=== PATIENT | male | born 1955 | race Caucasian/White ===

== ENCOUNTER → 2017-06-05 | Day surgery (SDC) | payer OTHER ==
--- NOTE | 2017-06-05 15:57 | RADIOLOGY REPORT (SQ) ---
EXAM DESCRIPTION: FLUORO/NEEDLE PLACEMENT; ARTHRO SHOULDER INJECTION COMPLETED DATE/TIME: 06/05/2017 2:53 pm REASON FOR STUDY: RIGHT SHOULDER PAIN (M25.511), ROTATOR CUFF TEAR (M75.100) M25.511 PAIN IN RIGHT SHOULDER M75.100 UNSP ROTATR-CUFF TEAR/RUPTR OF UNSP SHOULDER, NOT TR COMPARISON: CT angio chest 04/12/2015 MRI cervical spine 04/24/2015 FLUOROSCOPY TIME: 6 seconds 1 digital radiograph image saved to PACS. LIMITATIONS: None. PROCEDURE: Procedure, risks, benefits and alternatives explained to patient who then gave written co nsent. The posterior right shoulder was marked and a time out was called for correct procedure verifi cation. Posterior entry site marked using fluoroscopic guidance. Shoulder prepped and draped using sterile technique. Local anesthesia achieved using 7 mL of 1% lidocaine injection. 22 gauge spinal needle introduced into the joint space under direct fluoroscopic visualization. Non-ionic contrast in stilled to confirm intra-articular position. Dilute gadolinium solution then injected. Needle remove d and entry site covered with sterile bandage. No immediate complications noted. TECHNIQUE: Digital images acquired during fluoroscopy and stored on PACS. Patient immediately take n to the MR suite for additional imaging. INJECTION LOCATION: Posterior right shoulder, glenohumeral joint. CONTRAST TYPE AND AMOUNT: 1 mL of Isovue 300 in injected to confirm intra-articular needle placement followed by 10 mL of dilute gadolinium for MR arthrogram IMPRESSION: SUCCESSFUL NEEDLE PLACEMENT AND INJECTION FOR RIGHT SHOULDER MR ARTHROGRAM USING POSTERI OR APPROACH. COMMENT: Quality ID [id number]: Final reports for procedures using fluoroscopy that document radiation exp osure indices, or exposure time and number of fluorographic images (if radiation exposure indices are not available) TECHNICAL DOCUMENTATION: JOB ID: [id number] [employer]- All Rights Reserved
--- NOTE | 2017-06-05 16:51 | RADIOLOGY REPORT (SQ) ---
EXAM DESCRIPTION: MRI RT UPPER JOINT WITH COMPLETED DATE/TIME: 06/05/2017 3:21 pm REASON FOR STUDY: RIGHT SHOULDER PAIN (M25.511), ROTATOR CUFF TEAR (M75.100) M25.511 PAIN IN RIGHT SHOULDER M75.100 UNSP ROTATR-CUFF TEAR/RUPTR OF UNSP SHOULDER, NOT TR COMPARISON: Arthrogram same date TECHNIQUE: Post arthrogram Right shoulder images acquired and stored on PACS. Multiplanar imaging to include fat sensitive sequences such as T1, water sensitive sequences such as FST2/STIR, cartilage s ensitive sequences such as FSPD/gradient-echo sequences. LIMITATIONS: None. FINDINGS: BONE MARROW AND CORTEX: No worrisome bone lesions or marrow replacement. No occult fractur es. JOINT OR BURSAL EFFUSION: Joint is well distended for arthrogram. No loose bodies. No leakage into the subacromial/ subdeltoid bursa GLENO-HUMERAL ARTICULATION: Normal articulation. No subluxation. No cystic change. No osteophytes or cartilage loss. ACROMION AND AC JOINT: Type 1 acromion with mild acromioclavicular joint synovial thickening and bon y spurring. This is best shown on sagittal image 11. No significant narrowing of the subacromial re cess ROTATOR CUFF AND INTERVAL: There is a high-grade partial thickness tear along the anterior edge of th e supraspinatus tendon, best demonstrated on coronal image 11 and sagittal image 4. Very mild unders urface tendinopathy of the infraspinatus tendon and distal subscapularis tendon. No definite rotator interval tear. Injected arthrogram contrast fills the subcoracoid recess, subcoracoid recess has mu ltiple septations No rotator interval tear. No rotator interval thickening to suggest adhesive capsulitis. LABRUM AND BICEPS LABRAL COMPLEX: Intact. No labral tear. Intra-articular long-head biceps tendinop athy with mild increased signal avid enters the joint space. Distal biceps in normal location in bic ipital groove. REMAINDER OF LABRUM AND IGHL : No gross tear or paralabral cyst formation. Labral evaluation is less than optimal without joint distention. No thickening of IGHL to suggest adhesive capsulitis. PERIARTICULAR AND ADJACENT SOFT TISSUES: No masses or abnormal nodes. OTHER: No other significant finding. IMPRESSION: Acromioclavicular joint hypertrophy Tiny high-grade partial thickness tear anterior edge supraspinatus tendon TECHNICAL DOCUMENTATION: JOB ID: [id number] [employer]- All Rights Reserved
== END ==
LOC: RAD 13:43
PROVIDERS: ATTEND Nuclear Medicine
PROC: BP08ZZZ Plain Radiography of Right Shoulder (ICD-10-PCS; principal; 2017-06-05)
DX: M75.111 Incomplete rotator cuff tear or rupture of right shoulder, not specified as traumatic (principal); M25.511 Pain in right shoulder
CPT/HCPCS: 73222; 77002; 23350; A9576

== ENCOUNTER → 2018-07-16 | Outpatient (CLI) | payer OTHER ==
--- NOTE | 2018-07-16 15:53 | RADIOLOGY REPORT (SQ) ---
EXAM DESCRIPTION: MRI LUMBAR SPINE WITHOUT COMPLETED DATE/TIME: 07/16/2018 3:29 pm REASON FOR STUDY: LUMBAR RADICULOPATHY (M54.16) M54.16 RADICULOPATHY, LUMBAR REGION COMPARISON: None. TECHNIQUE: Sagittal and Axial imaging includes T1, T2, STIR and gradient echo sequences. Coronal T2/ HASTE imaging. LIMITATIONS: None. FINDINGS: VISUALIZED UPPER ABDOMEN: Limited evaluation. No acute or suspicious findings suggested. SEGMENTATION: No transitional anatomy. The lowest well-developed disc space is labeled L5-S1. ALIGNMENT: Anatomic. VERTEBRAE: Intact. BONE MARROW: Fatty vertebral body endplate changes at L4-5 and L5-S1 DISC SIGNAL: Diffuse decreased T2 weighted intervertebral disc signal. Disc space loss of height at L4-5 and L5-S1 POSTERIOR ELEMENTS: Generally intact. No pars defect evident. HARDWARE: None in the spine. CORD AND CONUS: Normal in size and signal intensity. Conus at the L1 level. SOFT TISSUES: No aortic aneurysm seen. No bulky retroperitoneal adenopathy or mass. No paraspinal mas s or fluid. T11-12: Unremarkable T12-L1: Unremarkable L1-L2: Mild to moderate bilateral facet hypertrophy. No central or foraminal encroachment. L2-L3: Mild diffuse posterior disc bulge, mild bilateral facet and ligament hypertrophy. Borderline central canal narrowing. Mild right and left foraminal narrowing without exiting L2 nerve root impin gement L3-L4: Broad diffuse posterior disc bulge and bony spurring, moderate bilateral facet and ligament hy pertrophy. Borderline central canal narrowing. Moderate right, mild left foraminal narrowing is pre sent without exiting L2 nerve root impingement L4-L5: Minimal posterior disc bulge, mild bilateral facet and ligament hypertrophy. No central steno sis. Moderate right, mild left foraminal narrowing without exiting L4 nerve root impingement L5-S1: Mild diffuse posterior disc bulge, moderate bilateral facet and ligament hypertrophy. No cent ral stenosis. Mild bilateral foraminal narrowing without exiting L5 nerve root impingement SACRUM: Visualized upper sacrum intact. OTHER: No other significant findings. IMPRESSION: Mild diffuse degenerative changes as above TECHNICAL DOCUMENTATION: JOB ID: [id number] 1976[employer]- All Rights Reserved Reading location - IP/workstation name: [email or web address]
== END ==
LOC: RAD 13:55
PROVIDERS: ATTEND Family Medicine
DX: M54.16 Radiculopathy, lumbar region (principal)
CPT/HCPCS: 72148

== ENCOUNTER → 2018-07-26 | Outpatient (CLI) | payer OTHER ==
--- NOTE | 2018-07-26 15:46 | RADIOLOGY REPORT (SQ) ---
EXAM DESCRIPTION: MRI RT LOWER JOINT WITHOUT COMPLETED DATE/TIME: 07/26/2018 3:06 pm REASON FOR STUDY: M25.551 PAIN IN RIGHT HIP M25.551 PAIN IN RIGHT HIP COMPARISON: None. TECHNIQUE: Righthip images acquired and stored on PACS. Multiplanar images to include fat sensitive sequences as T1, fluid sensitive sequences as T2/STIR and gradient echo sequences. Large FOV fat and fluid sensitive sequences include pelvis and opposite hip. LIMITATIONS: None. FINDINGS: BONE CORTEX AND MARROW: No generalized marrow replacement. No occult fracture. No worriso me bone lesions. TARGETED HIP: FEMORAL HEAD: Normal shape of the femoral head and neck. Mild osteoarthritic changes. ACETABULUM: No acetabular dysplasia. No subchondral cysts. LABRUM: Intact. Sensitivity is lower without joint distention. No paralabral cysts. TROCHANTER: No trochanteric bursal effusion. No edema/fluid at the insertions of the gluteus medius and gluteus minimus. OPPOSITE HIP: Limited evaluation. No worrisome bone lesions. No significant effusion. PELVIS, LOWER LUMBAR SPINE, SACROILIAC JOINTS: PELVIS : No insufficiency/stress fractures. No significant degenerative changes. Sacroiliac joints normal. L SPINE: See separate report. MUSCLES AND SOFT TISSUES: Adductors and piriformis normal. Abductors and greater trochanteric bursa n ormal without edema or fluid. Iliopsoas bursa without fluid. Hamstring attachments without edema or t ear. PELVIC SOFT TISSUES: No masses or adenopathy. SCIATIC NERVE: Identified, without masses or abnormal signal. OTHER: No other significant finding. IMPRESSION: Degenerative changes. No acute findings. TECHNICAL DOCUMENTATION: JOB ID: [id number] [employer]- All Rights Reserved Reading location - IP/workstation name: [email or web address]
== END ==
LOC: RAD 15:10
PROVIDERS: ATTEND Internal Medicine
DX: M25.551 Pain in right hip (principal)

== ENCOUNTER → 2019-04-11 | Outpatient (CLI) | payer OTHER ==
--- NOTE | 2019-04-11 17:37 | RADIOLOGY REPORT (SQ) ---
EXAM DESCRIPTION: CHEST 2 VIEWS COMPLETED DATE/TIME: 04/11/2019 5:16 pm REASON FOR STUDY: R05 COUGH COMPARISON: 04/12/2015 TECHNIQUE: Frontal and lateral radiographic views of the chest acquired. NUMBER OF VIEWS: Two view. LIMITATIONS: None. FINDINGS: LUNGS AND PLEURA: No pneumothorax. Minimal left lateral basilar subsegmental atelectasis - interval subpleural scarring. No consolidation or pleural effusion. MEDIASTINUM AND HILAR STRUCTURES: Stable. HEART AND VASCULAR STRUCTURES: Stable. BONES: No acute findings. HARDWARE: None in the chest. OTHER: No other significant finding. IMPRESSION: Minimal left lateral basilar subsegmental atelectasis - interval subpleural scarring. N o consolidation or pleural effusion. TECHNICAL DOCUMENTATION: JOB ID: [id number] [place]-72 2010 [employer]- All Rights Reserved Reading location - IP/workstation name: [email or web address][x+1]
== END ==
LOC: RAD 17:07
PROVIDERS: ATTEND Internal Medicine
DX: R05 Cough (principal)
CPT/HCPCS: 71046

== ENCOUNTER 2020-10-05 10:38 | Emergency (ER) | payer OTHER ==
--- NOTE | 2020-10-05 11:29 | ER Document Report ---
ED Medical Screen (RME) - General Chief Complaint: Chest Pain Stated Complaint: CHEST PAIN Time Seen by Provider: 10/05/20 11:21 Primary Care Provider: LEE DIEZ MD [Primary Care Provider] - Follow up as needed TRAVEL OUTSIDE OF THE [place] IN LAST 30 DAYS: No - HPI Notes: 10/05/20 11:27 65-year-old male presents to the emergency room today with bilateral jaw pain that radiated to his chest around 0920 this morning, reports substernal chest pain, denies any tightness or pressure. Denies any shortness of breath, nausea vomiting abdominal pain back pain neck pain. Patient reports he did have a cath done 20 years ago that was exploratory, did not require any stenting, was placed on GERD medication. Reports his father's first PR was at 56, non-smoker. Patient did not take any baby aspirin. non smoker. I have greeted and performed a rapid initial assessment of this patient. A comprehensive ED assessment and evaluation of the patient, analysis of test results and completion of the medical decision making process will be conducted by additional ED providers. PHYSICAL EXAMINATION: GENERAL: Well-appearing, well-nourished and in no acute distress. NECK: Normal range of motion CV: s1, s2 regular LUNGS: No respiratory distress The patient was evaluated during a global COVID-19 pandemic and that diagnosis was suspected/considered upon their initial presentation. Their evaluation, treatment and testing was consistent with current guidelines for patients who present with complaints or symptoms and may be related to COVID-19. - Related Data Allergies/Adverse Reactions: No Known Allergies Allergy (Verified 04/12/15 16:21) Past Medical History - Past Medical History Cardiac Medical History: Denies: Hx Atrial Fibrillation, Hx Congestive Heart Failure, Hx Coronary Artery Disease, Hx Hypercholesterolemia, Hx Hypertension, Hx Pulmonary Embolism Pulmonary Medical History: Reports: Hx Bronchitis Denies: Hx Tuberculosis Neurological Medical History: Reports: Hx Migraine. Denies: Hx Seizures Renal/ Medical History: Reports: Hx Benign Prostatic Hyperplasia GI Medical History: Reports: Hx Gastroesophageal Reflux Disease Past Surgical History: Denies: Hx Appendectomy, Hx Bowel Surgery, Hx Cholecystectomy, Hx Coronary Artery Bypass Graft, Hx Gastric Bypass Surgery, Hx Herniorrhaphy, Hx Pacemaker, Hx Tonsillectomy - Immunizations Hx Diphtheria, Pertussis, Tetanus Vaccination: No Physical Exam - Vital signs Vitals: Temp Pulse Resp BP Pulse Ox 98.2 F 75 16 138/87 H 97 10/05/20 10:57 10/05/20 10:57 10/05/20 10:57 10/05/20 10:57 10/05/20 10:57 Course - Vital Signs Vital signs: Temp Pulse Resp BP Pulse Ox 98.2 F 75 16 138/87 H 97 10/05/20 10:57 10/05/20 10:57 10/05/20 10:57 10/05/20 10:57 10/05/20 10:57 Doctor's Discharge - Discharge Referrals: LEE DIEZ MD [Primary Care Provider] - Follow up as needed
[2020-10-05 12:03] LABS: ABSOLUTE LYMPHOCYTES (AUTO) 1.4 10^3/uL (0.5-4.7); ABSOLUTE MONOCYTES (AUTO) 0.5 10^3/uL (0.1-1.4); ABSOLUTE NEUT (AUTO) 2.7 10^3/uL (1.7-8.2); BASOPHILS % (AUTO) 0.5 % (0-2); HEMATOCRIT 42.1 % (37.9-51.0); HEMOGLOBIN 14.8 g/dL (13.5-17.0); LYMPHOCYTES % (AUTO) 30.3 % (13-45); MEAN CORPUSCULAR HEMOGLOBIN 32.3 pg (27.0-33.4); MEAN CORPUSCULAR HGB CONC 35.2 g/dL (32.0-36.0); MEAN CORPUSCULAR VOLUME 92 fl (80-97); MONOCYTES % (AUTO) 10.1 % (3-13); PLATELET COUNT 207 10^3/uL (150-450); RED CELL DISTRIBUTION WIDTH 12.4 % (11.5-14.0); SEGMENTED NEUTROPHILS % (AUTO) 58.1 % (42-78); TOTAL CELLS COUNTED % (AUTO) 100 %; WHITE BLOOD COUNT 4.6 10^3/uL (4.0-10.5)
[2020-10-05 12:28] LABS: ALBUMIN 4.4 g/dL (3.5-5.0); ALKALINE PHOSPHATASE 78 U/L (38-126); ANION GAP 7 (5-19); ASPARTATE AMINO TRANSFERASE 38 U/L (17-59); BILIRUBIN,DIRECT 0.1 mg/dL (0.0-0.4); BILIRUBIN,TOTAL 0.6 mg/dL (0.2-1.3); BLOOD UREA NITROGEN 18 mg/dL (7-20); CARBON DIOXIDE 27 mmol/L (22-30); CHLORIDE 104 mmol/L (98-107); CREATINE KINASE 76 U/L (55-170); GLUCOSE 105 mg/dL (75-110); POTASSIUM 4.5 mmol/L (3.6-5.0); TOTAL PROTEIN 7.5 g/dL (6.3-8.2)
[2020-10-05 12:40] LABS: CREATINE KINASE MB 0.91 ng/mL (<4.55)
[2020-10-05 12:41] LABS: TROPONIN I < 0.012 ng/mL
--- NOTE | 2020-10-05 12:43 | RADIOLOGY REPORT (SQ) ---
EXAM DESCRIPTION: CHEST SINGLE VIEW IMAGES COMPLETED DATE/TIME: 10/05/2020 12:36 pm REASON FOR STUDY: chest pain COMPARISON: 04/11/2019. EXAM PARAMETERS: NUMBER OF VIEWS: One view. TECHNIQUE: Single frontal radiographic view of the chest acquired. RADIATION DOSE: NA LIMITATIONS: None. FINDINGS: LUNGS AND PLEURA: No opacities, masses or pneumothorax. No pleural effusion. MEDIASTINUM AND HILAR STRUCTURES: No masses. Contour normal. HEART AND VASCULAR STRUCTURES: Heart normal in size. Normal vasculature. BONES: No acute findings. HARDWARE: None in the chest. OTHER: No other significant finding. IMPRESSION: NO ACUTE RADIOGRAPHIC FINDING IN THE CHEST. TECHNICAL DOCUMENTATION: JOB ID: [id number] 2010 [employer]- All Rights Reserved Reading location - IP/workstation name: [email or web address]
--- NOTE | 2020-10-05 13:08 | ER Document Report ---
ED Cardiac - General Chief Complaint: Chest Pain Stated Complaint: CHEST PAIN Time Seen by Provider: 10/05/20 11:21 Primary Care Provider: LEE DIEZ MD [Primary Care Provider] - 10/07/20 Notes: Patient is a 65-year-old male who comes emergency department for chief complaint of an episode earlier today where he had pain just below the sternum. He states this was a vague discomfort at first that became uncomortable and then almost resolved on arrival to the Emergency Department. He states just before this he was hurting in his jaws in the TMJ areas on both sides although he isn't certain this was related. He denies nausea, vomiting, shortness of breath, dizziness, fever, cough. He states he actually has been having similar symptoms recently along with frequent heartburn, used to be on a PPI from his primary provider but this was stopped due to headaches while taking this. He states he takes frequent TUMS instead. He has not had an endoscopy. He did have a cardiac stress test and then heart catheterization in 2003 and was subsequently placed on the PPI. He is treated for BPH, has a history of ventral hernia repair, denies medical history otherwise. His father had an [place]. He denies smoking, alcohol, recreational drugs. TRAVEL OUTSIDE OF THE [place] IN LAST 30 DAYS: No - Related Data Allergies/Adverse Reactions: No Known Allergies Allergy (Verified 04/12/15 16:21) Home Medications: med for BPH Past Medical History - General Information source: Patient - Social History Smoking Status: Never Smoker Chew tobacco use (# tins/day): No Frequency of alcohol use: Occasional Drug Abuse: None Lives with: Family Family History: CAD - Past Medical History Cardiac Medical History: Denies: Hx Atrial Fibrillation, Hx Congestive Heart Failure, Hx Coronary Artery Disease, Hx Hypercholesterolemia, Hx Hypertension, Hx Pulmonary Embolism Pulmonary Medical History: Reports: Hx Bronchitis Denies: Hx Tuberculosis Neurological Medical History: Reports: Hx Migraine. Denies: Hx Seizures Renal/ Medical History: Reports: Hx Benign Prostatic Hyperplasia GI Medical History: Reports: Hx Gastroesophageal Reflux Disease Past Surgical History: Denies: Hx Appendectomy, Hx Bowel Surgery, Hx Cholecystectomy, Hx Coronary Artery Bypass Graft, Hx Gastric Bypass Surgery, Hx Herniorrhaphy, Hx Pacemaker, Hx Tonsillectomy - Immunizations Hx Diphtheria, Pertussis, Tetanus Vaccination: Yes Review of Systems - Review of Systems Constitutional: No symptoms reported EENT: No symptoms reported Cardiovascular: See HPI Respiratory: No symptoms reported Gastrointestinal: See HPI Genitourinary: No symptoms reported Male Genitourinary: No symptoms reported Musculoskeletal: No symptoms reported Skin: No symptoms reported Hematologic/Lymphatic: No symptoms reported Neurological/Psychological: No symptoms reported Physical Exam - Vital signs Vitals: Temp Pulse Resp BP Pulse Ox 98.2 F 75 16 138/87 H 97 10/05/20 10:57 10/05/20 10:57 10/05/20 10:57 10/05/20 10:57 10/05/20 10:57 - Notes Notes: GENERAL: Alert, interacts well. No acute distress. Very youthful in appearance HEAD: Normocephalic, atraumatic. EYES: Pupils equal, round, and reactive to light. Extraocular movements intact. ENT: Oral mucosa moist, tongue midline. Oropharynx unremarkable. Airway patent. NECK: Full range of motion. Supple. Trachea midline. No lymphadenopathy. LUNGS: Clear to auscultation bilaterally, no wheezes, rales, or rhonchi. No respiratory distress. Non-tender chest wall. HEART: Regular rate and rhythm. No murmur ABDOMEN: Soft, non-tender. Non-distended. Bowel sounds present in all 4 quadrants. GENITOURINARY: Deferred EXTREMITIES: Moves all 4 extremities spontaneously. No edema, normal radial and dorsalis pedis pulses bilaterally. No cyanosis. BACK: no cervical, thoracic, lumbar midline tenderness. No saddle anesthesia, normal distal neurovascular exam. Moves all extremities in full range of motion. NEUROLOGICAL: Alert and oriented x3. Normal speech. Cranial nerves II through XII grossly intact. Strength 5/5 in all extremities. PSYCH: Normal affect, normal mood. SKIN: Warm, dry, normal turgor. No rashes or lesions noted. Course - Re-evaluation Re-evalutation: Patient with symptoms he is very familiar with, he still had mild discomfort on my evaluation, he was given Carafate and Pepcid and after this his symptoms completely resolved. 2 negative troponins. EKG nonischemic. Chest x-ray unremarkable. CBC and chemistry unremarkable. Vital signs unremarkable. Based on patient's age and risk factors his heart score is 3. I discussed with patient at length. Patient is familiar with this, already had full work-up for this in the past, is familiar with treatments, although I did discuss options. Decision was made to discharge home on Carafate and Pepcid, I do have a very low suspicion of ACS based on his resolution with Carafate and Pepcid, negative work-up, low heart score, and history of the same. Patient has excellent primary care follow-up and states he will follow up very closely, discussed return precautions in detail, patient states appreciation and agreement. Stable and well-appearing at time of discharge. - Vital Signs Vital signs: Temp Pulse Resp BP Pulse Ox 98.2 F 75 20 118/89 H 98 10/05/20 10:57 10/05/20 10:57 10/05/20 16:01 10/05/20 16:01 10/05/20 16:01 - Laboratory Results Result Diagrams: 10/05/20 11:50 10/05/20 11:50 Critical Laboratory Results Reviewed: No Critical Results - Radiology Results Critical Radiology Results Reviewed: No Critical Results - EKG Interpretation by Me Additional EKG results interpreted by me: EKG shows sinus rhythm at a rate of 70, QTc 406, borderline axis, flattened T waves inferiorly, no T wave inversions or ST segment changes in consecutive leads. Discharge - Discharge Clinical Impression: Chest pain Qualifiers: Chest pain type: unspecified Qualified Code(s): R07.9 - Chest pain, unspecified Condition: Stable Disposition: HOME, SELF-CARE Additional Instructions: Based on your symptoms, history, and negative work-up I most strongly suspect esophageal spasm as a cause of her symptoms. You have been prescribed Carafate and famotidine to take, I recommend you take these over the next several days and these can also be taken for symptomatic relief. Follow close with Dr. Jessi dupree for additional referral and management. Temporarily avoid caffeine, alcohol, NSAIDs, spicy food as these can seriously worsen your situation. Return for any concerning symptoms including severe pain, vomiting, vomiting blood, black stools, passing out, or any other concerning symptoms. Prescriptions: Sucralfate [Carafate 1 gm Tablet] 1 gm PO QID #20 tablet Famotidine [Pepcid 20 mg Tablet] 20 mg PO BID #20 tablet Referrals: LEE DIEZ MD [Primary Care Provider] - 10/07/20
[2020-10-05] MEDS ORDERED: ASPIRIN 81 MG TABLET, CHEWABLE PO ONE (13:18)
[2020-10-05] MEDS ORDERED: FAMOTIDINE 20 MG TABLET PO ONE (13:18)
[2020-10-05] MEDS ORDERED: SUCRALFATE 1 GM TABLET PO ONE (13:18)
[2020-10-05 16:26] VITALS: BP 118/89
--- NOTE | 2020-10-06 00:47 | EKG REPORT ---
SEVERITY:- ABNORMAL ECG - SINUS RHYTHM PROBABLE LEFT ATRIAL ABNORMALITY PROBABLE INFERIOR INFARCT, AGE INDETERMINATE : Confirmed by: Juan Doherty 06-Oct-2020 00:45:48
== END 2020-10-05 14:40 | disposition home or self-care (01) ==
LOC: ER 10:38
DX: R07.9 Chest pain, unspecified (principal); R68.84 Jaw pain
CPT/HCPCS: 36415; 71045; 80053; 82550; 82553; 84484; 85025; 93005; 93010; 99285